=== PATIENT | male | born 1965 | race African-American/Black ===

== ENCOUNTER 2018-03-01 11:27 | Emergency (ER) | payer OTHER, SELFPAY ==
[2018-03-01 11:36] VITALS: BP 145/83; PULSE 85; RESP 18; TEMP 36.5; O2SAT 99; BMI 33.7
--- NOTE | 2018-03-01 12:23 | ED.MALEGU ---
HPI - Male Genitourinary General Chief complaint: Urogenital-Male Stated complaint: SORENESS RIGHT BACK SIDE Time Seen by Provider: 03/01/18 11:43 Source: patient Mode of arrival: ambulatory Limitations: no limitations History of Present Illness HPI Narrative: 52-year-old male here for evaluation of 3 weeks of right lower back pain. Patient states that he does not remember a specific incident where it started to hurt. Prior to 3 weeks ago he never had any symptoms like this before. Denies any fevers. Denies any urinary symptoms. Denies any bowel symptoms. Denies any saddle anesthesia. States that he is emptying his bladder when he goes the bathroom. States that it does not radiate down his right leg. No skin changes. Has not tried anything for it. States that it does hurt worse in the morning and after he has been immobile for period of time but then improves after movement. Related Data Home Medications Medication Instructions Recorded Confirmed amlodipine 5 mg PO DAILY 03/01/18 03/01/18 multivitamin 1 tab PO DAILY 03/01/18 03/01/18 simvastatin 10 mg PO QPM 03/01/18 03/01/18 Previous Rx's Medication Instructions Recorded cyclobenzaprine 10 mg PO TID PRN #10 tab 03/01/18 hydrocodone-acetaminophen [Yellow Jacket] 1 tab PO Q6H PRN #10 tab 03/01/18 Allergies Allergy/AdvReac Type Severity Reaction Status Date / Time lisinopril [LISINOPRIL] Allergy Severe THROAT Verified 03/01/18 11:36 SWELLING Review of Systems Constitutional Denies fatigue and Denies fever(s) Cardiovascular Denies chest pain, Denies syncope, Denies palpitations and Denies dyspnea Respiratory Denies cough and Denies dyspnea Gastrointestinal Gastrointestinal: Denies abdominal pain, Denies diarrhea, Denies nausea and Denies vomiting Genitourinary Denies hematuria, Denies difficulty urinating, Denies genital pain, Denies dysuria, Denies flank pain, Denies testicular pain, Denies urinary frequency, Denies urinary hesitancy, Denies urinary incontinence and Denies urinary urgency Musculoskeletal Reports back pain (Right lower back), Reports myalgias (Right lower back), Denies arthralgias, Denies joint swelling, Denies limited range of motion and Denies numbness Integumentary/Breasts Denies lesions, Denies rash and Denies wounds Neurologic Denies syncope, Denies focal weakness and Denies numbness Endocrine Denies fatigue and Denies palpitations Exam Initial Vital Signs Initial Vital Signs: Vital Signs Temperature 97.7 F 03/01/18 11:36 Pulse Rate 85 03/01/18 11:36 Respiratory Rate 18 03/01/18 11:36 Blood Pressure 145/83 H 03/01/18 11:36 Pulse Oximetry 99 03/01/18 11:36 Const General: cooperative, healthy appearing, comfortable, well developed, well groomed and No acute distress [facility] Head: normal to inspection, normocephalic and atraumatic Resp Effort & Inspection: normal respiratory effort Auscultation: clear to auscultation bilaterally Cardio Rate: regular rate Rhythm: regular rhythm Pulses: radial pulses present GI Inspection: normal to inspection and non-distended Palpation: soft, No firm and No tender Back/Spine/Pelvis Other: Patient states that he is not tender to palpation where he normally is in his right lower back Skin Lesions: no lesions Rashes: no rashes Wounds: no wounds Neuro General: alert, awake and oriented x3 Cognition: normal cognition Speech: speech normal Gait: normal gait (Does seem to favor his right leg somewhat) Extrem General: normal to inspection and capillary refill normal Course Vital Signs - 8 hr 03/01/18 11:36 03/01/18 13:07 Temperature 97.7 F Pulse Rate 85 71 Respiratory Rate 18 16 Blood Pressure 145/83 H Blood Pressure [Left Arm] 132/83 H Pulse Oximetry 99 97 MDM - Male Genitourinary [facility] Narrative Medical decision making narrative: No trauma, neurovascularly intact, no red flag symptoms concerning for cauda equina. Doubt fracture. Will hold on radiologic studies for now. We did discuss exercises in the use of nonsteroidal anti-inflammatories. Will send home with a short course of muscle relaxers he was instructed that if after using this a couple times his symptoms do not improve he should stop taking them. Also gave a short course of pain medication for him to take at night. He is not from this area and is heading home at the beginning of next week. He is instructed that he needed to contact his primary doctor for a follow-up when he returns home to discuss the indication for further evaluation if necessary. Patient expressed understanding and agreement with plan. His is at bedside for these discussions. Discharge Plan Departure Patient Disposition: Home, Self-Care Clinical Impression: Lower back pain Discharge Date/Time: 03/01/18 13:34 Interventions: ED Discharge Assessment Last Done: 03/01/18 13:34 Instructions: Low Back Pain, Activity May Be Better then Rest for Low Back Pain Recovery Activity Restrictions/Additional Instructions: Recommend that you take the medication like we discussed. Call your primary doctor for a follow-up visit for when you return home. Return to the emergency department for any new or worsening symptoms Prescriptions: New cyclobenzaprine 10 mg tablet 10 mg PO TID PRN (Reason: muscle spasm) Qty: 10 RF: 0 hydrocodone-acetaminophen [Yellow Jacket] 5-325 mg tablet 1 tab PO Q6H PRN (Reason: pain) Qty: 10 RF: 0 No Action multivitamin Tablet 1 tab PO DAILY RF: 0 simvastatin 10 mg Tablet 10 mg PO QPM RF: 0 amlodipine 5 mg Tablet 5 mg PO DAILY RF: 0
[2018-03-01 13:07] VITALS: BP 132/83; PULSE 71; RESP 16; O2SAT 97
== END 2018-03-01 13:34 | disposition home or self-care (01) ==
PROVIDERS: Emergency Provider Emergency Medicine
DX: M54.5 Low back pain (principal)
CPT/HCPCS: 81003; 99282